=== PATIENT | female | born 2000 | race Caucasian/White ===

== ENCOUNTER 2023-08-13 21:01 | Emergency (ER) | payer OTHER ==
[2023-08-13] MEDS ORDERED: methylPREDNISolone Sod Succ/PF 125 MG/2 ML VIAL ONE (22:01)
== END 2023-08-13 23:22 | disposition home or self-care (01) ==
LOC: ERS 21:01
DX: T78.1XXA Other adverse food reactions, not elsewhere classified, initial encounter (principal); R55 Syncope and collapse; R11.10 Vomiting, unspecified
CPT/HCPCS: 96374; J2930